=== PATIENT | female | born 1930 | race Caucasian/White ===

== ENCOUNTER → 2016-10-06 | Outpatient (CLI) | payer BC ==
[~2016-10-06] MED LIST: ALPR-411 PO; ASPI81TA28 PO; ATOR-24 PO; CALC200T PO; DOCU1TAB6 PO; DTRSR5 PO; FLUT50SP37; HYDR-5688 PO; KETO2CRE14 TD; LTHSR/300 PO; METR0.754 TD; MTRCR45; MULT-513 PO; NZRCR; POTA-335 PO; POTA1TAB97 PO; TRAZ50TA35 PO; TRML160; VTMD PO
== END | disposition home or self-care (01) ==
LOC: C.LABSPEC 07:23
PROVIDERS: ATTEND Internal Medicine
DX: R19.7 Diarrhea, unspecified (principal)

== ENCOUNTER 2016-10-08 09:28 | Inpatient (IN) | payer BC, OTHER ==
[~2016-10-08] VITALS: Ht 163.8 cm; Wt 60.8 kg
[~2016-10-08 09:28] MED LIST changes: -ASPI81TA28 PO; -ATOR-24 PO; -DOCU1TAB6 PO; -DTRSR5 PO; -FLUT50SP37; -MTRCR45; -NZRCR; -POTA1TAB97 PO; -TRML160
[2016-10-08] MEDS ORDERED: SODIUM CHLORIDE 0.9% 1000ML 1,000 ML IV SCH (09:34)
[2016-10-08 09:55] VITALS: O2SAT 99
[2016-10-08] MEDS ORDERED: SODIUM CHLORIDE 0.9% 500ML 500 ML IV STA ×2 (09:57→12:15)
--- NOTE | 2016-10-08 10:00 | DIAGNOSTIC IMAGING REPORT ---
CT OF THE HEAD WITHOUT CONTRAST CLINICAL HISTORY: Stroke symptoms. COMPARISON STUDY: Head CT and MRI the brain November 07, 2006. CT DOSE: 709.48 mGy.cm TECHNIQUE: Helical axial images of the head were obtained without IV contrast. Automated exposure control was utilized for the study. FINDINGS: No acute intracranial hemorrhage, midline shift or mass effect is present. Ventricular system is stable. There is a cavum septum pellucidum. There are no CT findings to suggest acute dural sinus thrombosis or acute territorial infarct. No significant calvarial abnormalities are present. Visualized portions of the sinuses and mastoid air cells are clear. There is possible hyperdensity within the right middle cerebral artery. IMPRESSION: 1. No acute intracranial hemorrhage or mass effect. 2. Possible hyperdensity of the right middle cerebral artery. This may reflect artifact or acute thrombus seen in the setting of acute infarct. Electronically signed by: Pepe Cordero M.D. 10/08/2016 9:59 AM Dictated Date/Time: 10/08/2016 9:51 AM
--- NOTE | 2016-10-08 10:00 | EMERGENCY ROOM VISIT NOTE ---
History Report prepared by Isela: Charbel Ferrell Under the Supervision of: Dr. Palmer Johnson M.D. First contact with patient: 09:34 Chief Complaint: STROKE SYMPTOMS Stated Complaint: STROKE SYMTOMS History of Present Illness The patient is a 86 year old female who presents to the Emergency Room with complaints of an episode of stroke occurring this morning. Per the patient's nwptjpde-[id number] and the patient, she heard a banging this morning about 1.5 hours ago, and she was found on the floor and was "pounding" on the dresser. The patient adds that she slid and fell to the floor around [id number] this morning. She had reportedly been up and walking around at 0400 this morning to tend to her dog, but the wwnckxob-iu-dha had last seen her last night before bed around 1930. She had a glass of wine last night with dinner, but this is not unusual for her. She is reported to last known to be well around 0600 this morning. The mwyezxdd-ag-lok indicates that she has noticed left-sided weakness and left-sided facial droop. The patient reports that after tending to her dog she went to go back to sleep, but felt weak in her legs. She then lowered herself to the floor. The patient does not have a history of stroke or migraine , but has a history of hypertension and osteoporosis. She has also had a knee replacement in the past. She does not have a headache, but complains of right shoulder pain. She was at the doctors yesterday to receive an injection to her right shoulder. She recently lost about 52 pounds over the past year, and has been having stool cultures to test for C. diff. Source of History: patient, family Onset: about 1.5 hours ago Position: head Quality: other (stroke) Timing: other (episode) Associated Symptoms: + weakness (left-sided), No headache Review of Systems See HPI for pertinent positives & negatives. A total of 10 systems reviewed and were otherwise negative. Past Medical & Surgical Medical Problems: (1) Bipolar 1 disorder (2) CVA (cerebral vascular accident) (3) History of hypertension (4) History of osteoporosis (5) Spinal stenosis Surgical Problems: (1) Status post left partial knee replacement (2) Status post right partial knee replacement Family History No pertinent family history stated. Social History Housing Status: lives with family Current/Historical Medications Scheduled Alprazolam (Xanax), 0.25 MG PO HS Aspirin (Aspirin Ec), 81 MG PO DAILY Atorvastatin (Lipitor), 40 MG PO HS Calcium Carbonate-Vitamin D (Oscal 500/200 D-3), 1 TABLET PO BID Docusate Sodium (Docusate Sodium), 100 MG PO DAILY Zena Carbonate (Zena Carbonate), 300 MG PO HS Multivitamins/Minerals (Mvi With Minerals), 1 TAB PO DAILY Oxybutynin Chloride (Oxybutynin Chloride ER), 5 MG PO DAILY Potassium Chloride (K-Tab), 20 MEQ PO TID Trazodone Hcl (Trazodone), 150 MG PO HS Scheduled PRN Hydrocodone/Acetaminophen 5MG/325MG ([place] 5MG/325MG), 1 TABLET PO Q6 PRN for Pain Miscellaneous Medications Fluticasone Propionate (Nasal) (Clarispray) Ketoconazole (Ketoconazole) Metronidazole Hcl (Metronidazole) Triamcinolone (Triamcinolone Acetonide) Allergies Coded Allergies: Iodine (Verified Allergy, Severe, ANAPHYLACTIC SHOCK, 10/08/16) PT STATES IODINE ALLERGY ,ANAPHYLACTIC SHOCK ON CONTRAST MEDIA FORM RADIOLOGIST INFORMED PT WAS CANCELED DR OFFICE WAS CALLED Penicillins (Verified Allergy, Intermediate, HIVES, 10/08/16) HIVES Molds and Smuts (Verified Allergy, Unknown, ., 10/08/16) POLLEN (Verified Allergy, Unknown, ., 10/08/16) Physical Exam Vital Signs Date Time Temp Pulse Resp B/P Pulse Ox O2 Delivery O2 Flow Rate FiO2 10/08/16 11:15 60 14 176/84 100 Room Air 10/08/16 11:00 65 17 171/69 97 Room Air 10/08/16 10:45 74 15 169/71 100 Room Air 10/08/16 10:30 67 19 181/83 100 Room Air 10/08/16 10:16 68 23 182/73 100 Room Air 10/08/16 10:06 82 18 195/72 98 Room Air 10/08/16 09:55 99 Room Air 10/08/16 09:51 134/90 10/08/16 09:49 73 10/08/16 09:44 36.9 65 22 172/84 100 Room Air Physical Exam GENERAL: Patient is a healthy-appearing well-nourished HEAD: Normocephalic atraumatic EYES: Ocular movements intact pupils equal and react to light OROPHARYNX mucous membranes are moist no exudates present no erythema or edema present NECK: Supple no nuchal rigidity CHEST: Good equal expansion LUNGS: Clear and equal to auscultation CARDIAC: Normal S1 and S2 ABDOMEN: Soft nontender no guarding BACK: No CVA tenderness EXTREMITIES: No pain upon palpation. 4/5 strength in left arm, 4/5 strength in left leg. No clubbing cyanosis or edema NEURO: Patient is following commands is answering questions appropriately. Alert and oriented x3. Left-sided facial droop noted. Medical Decision & Procedures ER Provider Diagnostic Interpretation: Radiology results as stated below per my review and radiologist interpretation: CT OF THE HEAD WITHOUT CONTRAST FINDINGS: No acute intracranial hemorrhage, midline shift or mass effect is present. Ventricular system is stable. There is a cavum septum pellucidum. There are no CT findings to suggest acute dural sinus thrombosis or acute territorial infarct. No significant calvarial abnormalities are present. Visualized portions of the sinuses and mastoid air cells are clear. There is possible hyperdensity within the right middle cerebral artery. IMPRESSION: 1. No acute intracranial hemorrhage or mass effect. 2. Possible hyperdensity of the right middle cerebral artery. This may reflect artifact or acute thrombus seen in the setting of acute infarct. Electronically signed by: Pepe Cordero M.D. 10/08/2016 9:59 AM Dictated Date/Time: 10/08/2016 9:51 AM CHEST ONE VIEW PORTABLE FINDINGS: Right shoulder arthroplasty is incidentally noted. There is no pneumothorax or pleural effusion. Cardiac size is normal. Mediastinal contours are normal. Linear bibasilar opacities favor atelectasis. There is no evidence of pulmonary edema. IMPRESSION: No acute cardiopulmonary findings. Electronically signed by: Pepe Cordero M.D. 10/08/2016 10:00 AM Dictated Date/Time: 10/08/2016 9:59 AM Laboratory Results 10/08/16 09:50 Red Blood Count 3.79, Mean Corpuscular Volume 93.1, Mean Corpuscular Hemoglobin 31.1, Mean Corpuscular Hemoglobin Concent 33.4, Mean Platelet Volume 9.1, Neutrophils (%) (Auto) 78.7, Lymphocytes (%) (Auto) 13.2, Monocytes (%) (Auto) 7.9, Eosinophils (%) (Auto) 0.0, Basophils (%) (Auto) 0.0, Neutrophils # (Auto) 6.63, Lymphocytes # (Auto) 1.11, Monocytes # (Auto) 0.67, Eosinophils # (Auto) 0.00, Basophils # (Auto) 0.00 10/08/16 09:50 Test 10/08/16 09:46 10/08/16 09:50 10/08/16 11:10 Bedside Glucose 93 mg/dl (70-90) White Blood Count 8.43 K/uL (4.8-10.8) Red Blood Count 3.79 M/uL (4.2-5.4) Hemoglobin 11.8 g/dL (12.0-16.0) Hematocrit 35.3 % (37-47) Mean Corpuscular Volume 93.1 fL (80-100) Mean Corpuscular Hemoglobin 31.1 pg (25-34) Mean Corpuscular Hemoglobin Concent 33.4 g/dl (32-36) Platelet Count 245 K/uL (130-400) Mean Platelet Volume 9.1 fL (7.4-10.4) Neutrophils (%) (Auto) 78.7 % Lymphocytes (%) (Auto) 13.2 % Monocytes (%) (Auto) 7.9 % Eosinophils (%) (Auto) 0.0 % Basophils (%) (Auto) 0.0 % Neutrophils # (Auto) 6.63 K/uL (1.4-6.5) Lymphocytes # (Auto) 1.11 K/uL (1.2-3.4) Monocytes # (Auto) 0.67 K/uL (0.11-0.59) Eosinophils # (Auto) 0.00 K/uL (0-0.5) Basophils # (Auto) 0.00 K/uL (0-0.2) RDW Standard Deviation 47.5 fL (36.4-46.3) RDW Coefficient of Variation 13.9 % (11.5-14.5) Immature Granulocyte % (Auto) 0.2 % Immature Granulocyte # (Auto) 0.02 K/uL (0.00-0.02) Prothrombin Time 10.0 SECONDS (9.0-12.0) Prothromb Time International Ratio 0.9 (0.9-1.1) Activated Partial Thromboplast Time 22.4 SECONDS (21.0-31.0) Partial Thromboplastin Ratio 0.9 Anion Gap 8.0 mmol/L (3-11) Est Creatinine Clear Calc Drug Dose 36.0 ml/min Estimated GFR () 62.4 Estimated GFR (Non- 53.9 BUN/Creatinine Ratio 26.6 (10-20) Calcium Level 9.6 mg/dl (8.5-10.1) Total Creatine Kinase 42 U/L (26-192) Creatine Kinase MB 0.8 ng/ml (0.5-3.6) Creatine Kinase MB Ratio 1.9 (0-3.0) Troponin I < 0.015 ng/ml (0-0.045) Zena Level 0.5 mMOL/L (0.6-1.2) Urine Color YELLOW Urine Appearance CLEAR (CLEAR) Urine pH 7.5 (4.5-7.5) Urine Specific [place] 1.004 (1.000-1.030) Urine Protein NEG (NEG) Urine Glucose (UA) NEG (NEG) Urine Ketones NEG (NEG) Urine Occult Blood NEG (NEG) Urine Nitrite NEG (NEG) Urine Bilirubin NEG (NEG) Urine Urobilinogen NEG (NEG) Urine Leukocyte Esterase NEG (NEG) Urine Opiates Screen NEG (NEG) Urine Methadone, Qualitative NEG (NEG) Urine Barbiturates NEG (NEG) Urine Phencyclidine (PCP) Level NEG (NEG) Ur Amphetamine/Methamphetamine NEG (NEG) MDMA (Ecstasy) Screen NEG (NEG) Urine Benzodiazepines Screen NEG (NEG) Urine Cocaine Metabolite NEG (NEG) Urine Marijuana (THC) NEG (NEG) Labs reviewed by ED physician. Medications Administered Medications (Trade) Dose Ordered Sig/Tomás Route Start Time Stop Time Status Last Admin Dose Admin Sodium Chloride 1,000 ml @ 50 mls/hr Q20H IV 10/08/16 09:34 11/07/16 09:33 10/08/16 10:03 50 MLS/HR Sodium Chloride (Nss 500ml) 500 ml @ 999 mls/hr Q31M STAT IV 10/08/16 09:57 10/08/16 10:27 DC 10/08/16 10:00 999 MLS/HR ECG Indication: other (stroke symptoms) Rate (beats per minute): 59 Rhythm: sinus bradycardia Findings: no acute ischemic change, no ectopy ED Course 0934: Past medical records reviewed. The patient was evaluated in room B1. A complete history and physical examination was performed. 0934: Ordered NSS 1,000 ml @ 50 mls/hr IV. 0951: I discussed the patient's case with Dr. Rasmussen, who will evaluate the patient. 0957: Ordered NSS 500 ml @ 999 mls/hr IV. 1031: Ordered Aspirin 324 mg PO. 1100: I discussed the patient's case with Dr. Pretty, he has agreed to evaluate the patient for further management and care. Medical Decision Differential diagnosis: Etiologies such as metabolic, infection, hypo/hyperglycemia, electrolyte abnormalities, cardiac sources, intracerebral event, toxicologic, neurologic, as well as others were entertained. This is an 86-year-old female who presents emergency department with left-sided leg and arm weakness along with a left-sided facial droop. Due to the nature of the patient's symptoms as well as the time limit a stroke alert was immediately initiated area the patient was discussed with a neurologist in [facility] due to the patient's waxing and waning symptoms that the patient was not a TPA candidate. The patient was given normal saline bolus 500 mL times two.I did discuss the case with the hospitalist service who agreed to admit the patient. Later on the patient's symptoms did return she was sent for CTA of the head. Due to the patient's anaphylactic reaction to CT dye in the past she was given Solu-Medrol, Benadryl along with Zantac. [facility] neurologist recommended that an NG tube be placed and the patient be loaded with Plavix. Patient and family were in agreement with the treatment plan. Consults Time Called: 09 Consulting Physician: Dr. Rasmussen. [facility] Returned Call: [phone] I discussed the patient's case with Dr. Rasmussen, who will evaluate the patient. Additional Consults: Time Called: 1040 Consulted Physician: Dr. Pretty, Internal Medicine Returned Call: 1100 Additional Comments: I discussed the patient's case with Dr. Pretty, he has agreed to evaluate the patient for further management and care. Impression Primary Impression: CVA (cerebral vascular accident) Critical Care I have personally spent greater than 90 minutes of critical care time in the direct management of this patient. This includes bedside care, interpretation of diagnostic studies, and testing, discussion with consultants, patient, and family members, and other required patient management activities. This 90 minutes is in excess of all separately billable procedures. Scribe Attestation The scribe's documentation has been prepared under my direction and personally reviewed by me in its entirety. I confirm that the note above accurately reflects all work, treatment, procedures, and medical decision making performed by me. Departure Information Dispostion Being Evaluated By Hospitalist Referrals Joe Reich M.D. (PCP) Forms HOME CARE DOCUMENTATION FORM, IMPORTANT VISIT INFORMATION Patient Instructions My [facility] Problem Qualifiers Primary Impression: CVA (cerebral vascular accident) CVA mechanism: unspecified Qualified Codes: I63.9 - Cerebral infarction, unspecified
--- NOTE | 2016-10-08 10:02 | DIAGNOSTIC IMAGING REPORT ---
CHEST ONE VIEW PORTABLE CLINICAL HISTORY: Stroke COMPARISON STUDY: Chest radiograph May 30, 2016 FINDINGS: Right shoulder arthroplasty is incidentally noted. There is no pneumothorax or pleural effusion. Cardiac size is normal. Mediastinal contours are normal. Linear bibasilar opacities favor atelectasis. There is no evidence of pulmonary edema. IMPRESSION: No acute cardiopulmonary findings. Electronically signed by: Pepe Cordero M.D. 10/08/2016 10:00 AM Dictated Date/Time: 10/08/2016 9:59 AM
[2016-10-08 10:03] LABS: COMPLETE YES; HEMATOCRIT 35.3 % (37-47); IG% 0.2 %; LYMPH % 13.2 %; LYMPH ABS # 1.11 K/uL (1.2-3.4); MEAN CELL VOLUME 93.1 fL (80-100); MEAN CORPUSCULAR HEMOGLOBIN 31.1 pg (25-34); MEAN CORPUSCULAR HGB CONC 33.4 g/dl (32-36); MEAN PLATELET VOLUME 9.1 fL (7.4-10.4); MONO % 7.9 %; NEUT % 78.7 %; PLATELET COUNT 245 K/uL (130-400); RED BLOOD COUNT 3.79 M/uL (4.2-5.4); WHITE BLOOD COUNT 8.43 K/uL (4.8-10.8)
[2016-10-08 10:12] LABS: INR 0.9 (0.9-1.1); PARTIAL THROMBOPLASTIN RATIO 0.9
[2016-10-08 10:20] LABS: BLOOD UREA NITROGEN 25 mg/dl (7-18); BUN/CREATININE RATIO 26.6 (10-20); CALCIUM 9.6 mg/dl (8.5-10.1); CARBON DIOXIDE 26 mmol/L (21-32); CHLORIDE 107 mmol/L (98-107); CREATININE 0.95 mg/dl (0.60-1.20); GLUCOSE 97 mg/dl (70-99); POTASSIUM 3.7 mmol/L (3.5-5.1); SODIUM 141 mmol/L (136-145)
[2016-10-08 10:25] LABS: CKMB/CK RATIO 1.9 (0-3.0)
[2016-10-08] MEDS ORDERED: ASPIRIN 81 MG CHEW PO STA (10:31)
[2016-10-08] MEDS ORDERED: ATOR-24 PO (10:46)
[2016-10-08] MEDS ORDERED: DOCU1TAB6 PO (10:46)
[2016-10-08] MEDS ORDERED: TRML160 (10:46)
[2016-10-08] MEDS ORDERED: MTRCR45 (10:46)
[2016-10-08] MEDS ORDERED: FLUT50SP37 (10:46)
[2016-10-08] MEDS ORDERED: POTA1TAB97 PO (10:46)
[2016-10-08] MEDS ORDERED: NZRCR (10:46)
[2016-10-08] MEDS ORDERED: DTRSR5 PO (10:46)
[2016-10-08] MEDS ORDERED: ASPI81TA28 PO (10:46)
[2016-10-08] MEDS ORDERED: ACETAMINOPHEN 325 MG TAB PO PRN (11:15)
[2016-10-08] MEDS ORDERED: PHARMACIST DISCHARGE MED REC CONSULT PRN (11:15)
[2016-10-08] MEDS ORDERED: ONDANSETRON INJ 2 MG/ML 2 ML VIAL IV PRN (11:15)
[2016-10-08] MEDS ORDERED: ALUMINUM/MAGNESIUM/SIMETH (MAALOX MAX) 30 ML UDC PO PRN (11:15)
[2016-10-08 11:20] LABS: URINE APPEARANCE CLEAR (CLEAR); URINE BILIRUBIN NEG (NEG); URINE COLOR YELLOW; URINE NITRITE NEG (NEG); URINE PH 7.5 (4.5-7.5); URINE SPECIFIC GRAVITY 1.004 (1.000-1.030); UROBILINOGEN NEG (NEG); ZZUR CULT IF INDIC CLEAN CATCH NO
[2016-10-08 11:21] LABS: MANUAL MICROSCOPIC REQUIRED? NO; REVIEW REQ? NO
[2016-10-08 11:46] LABS: BENZODIAZEPINE, URINE NEG (NEG); COCAINE,URINE NEG (NEG); PHENCYCLIDINE, URINE NEG (NEG)
[2016-10-08] MEDS ORDERED: OPTIRAY 320 IV PRN (12:15)
--- NOTE | 2016-10-08 12:15 | History and Physical ---
History & Physical Date & Time of Service: Oct 08, 2016 at 11:52 Chief Complaint: Stroke Symtoms Primary Care Physician: Joe Reich M.D. History of Present Illness Source: patient, family, clinic records, hospital records Patient is a pleasant 86 y/o female, with PMHx of HTN, bipolar disorder, OA, h/ o carotid stenosis, DVT, and hyperlipidemia, who presented to the ED because of stroke-like symptoms. Per patient's son, he heard his mother banging around in her room this AM. She was found on the floor, banging on the dresser. The patient states she slid out of bed and fell on the floor. She was lying there for approximately 15 minutes before she was found. Patient was last reported well around 0600 this AM. Patient states she was tending to her dog early this AM and noticed her legs getting weak. She states she then lowered herself to the floor. [id number] reports left-sided weakness and facial droop. Per son , when he found the patient this AM, she was confused with slurred speech. Patient denies any cardiac history. Denies any history of CVA, but states she has had a mini stroke. Admits to h/o DVT. Denies PE. Patient admits to a h/o carotid stenosis for which she follows Dr. Perez; per son, at this time, they are deferring surgery. Patient denies any fever, chills, sweats, lightheadedness , dizziness, vision changes, CP, palpitations, edema, SOB, wheezing, cough, abdominal pain, nausea, vomiting, diarrhea, urinary symptoms, melena, numbness/ tingling, muscle/joint pain, anxiety/depression, active bleeding, or new skin discoloration/changes. Past Medical/Surgical History Medical Problems: 1. HTN 2. Bipolar disorder 3. OA 4. h/o carotid stenosis 5. h/o DVT 6. Hyperlipidemia Family History Omitted secondary to age Social History Smoking Status: Never Smoker Immunizations History of Influenza Vaccine: Unknown History of Tetanus Vaccine?: Unknown History of Pneumococcal: Unknown History of Hepatitis B Vaccine: Unknown Multi-Drug Resistant Organisms History of MDRO: No Allergies Coded Allergies: Iodine (Verified Allergy, Severe, ANAPHYLACTIC SHOCK, 10/08/16) PT STATES IODINE ALLERGY ,ANAPHYLACTIC SHOCK ON CONTRAST MEDIA FORM RADIOLOGIST INFORMED PT WAS CANCELED DR LUO WAS CALLED Penicillins (Verified Allergy, Intermediate, HIVES, 10/08/16) HIVES Molds and Smuts (Verified Allergy, Unknown, ., 10/08/16) POLLEN (Verified Allergy, Unknown, ., 10/08/16) Home Medications Scheduled Alprazolam (Xanax), 0.25 MG PO HS Aspirin (Aspirin Ec), 81 MG PO DAILY Atorvastatin (Lipitor), 40 MG PO HS Calcium Carbonate-Vitamin D (Oscal 500/200 D-3), 1 TABLET PO BID Docusate Sodium (Docusate Sodium), 100 MG PO DAILY Helen Carbonate (Helen Carbonate), 300 MG PO HS Multivitamins/Minerals (Mvi With Minerals), 1 TAB PO DAILY Oxybutynin Chloride (Oxybutynin Chloride ER), 5 MG PO DAILY Potassium Chloride (K-Tab), 20 MEQ PO TID Trazodone Hcl (Trazodone), 150 MG PO HS Scheduled PRN Hydrocodone/Acetaminophen 5MG/325MG ([place]urora 5MG/325MG), 1 TABLET PO Q6 PRN for Pain Miscellaneous Medications Fluticasone Propionate (Nasal) (Clarispray) Ketoconazole (Ketoconazole) Metronidazole Hcl (Metronidazole) Triamcinolone (Triamcinolone Acetonide) Physical Exam Vital Signs Date Time Temp Pulse Resp B/P Pulse Ox O2 Delivery O2 Flow Rate FiO2 10/08/16 11:31 57 19 157/72 100 Room Air 10/08/16 11:24 61 10/08/16 11:15 60 14 176/84 100 Room Air 10/08/16 11:00 65 17 171/69 97 Room Air 10/08/16 10:45 74 15 169/71 100 Room Air 10/08/16 10:30 67 19 181/83 100 Room Air 10/08/16 10:16 68 23 182/73 100 Room Air 10/08/16 10:06 82 18 195/72 98 Room Air 10/08/16 09:55 99 Room Air 10/08/16 09:51 134/90 10/08/16 09:49 73 10/08/16 09:44 36.9 65 22 172/84 100 Room Air General Appearance: no apparent distress, + pertinent finding (frail appearing ) Head: normocephalic, atraumatic ENT: hearing grossly normal Neck: supple Respiratory/Chest: lungs clear, no respiratory distress, no accessory muscle use Cardiovascular: + bradycardia (regular rhythm ) Abdomen/GI: normal bowel sounds, non tender, soft Extremities/Musculoskelatal: no calf tenderness, no pedal edema Neurologic/Psych: alert, normal mood/affect, oriented x 3, + facial droop ( left sided ), + motor weakness (decreased left upper extremity strength ) Skin: normal color, warm/dry, no rash Diagnostics Laboratory Results Results Past 24 Hours Test 10/08/16 09:46 10/08/16 09:50 10/08/16 11:02 10/08/16 11:10 Range/Units Bedside Glucose 93 70-90 mg/dl White Blood Count 8.43 4.8-10.8 K/uL Red Blood Count 3.79 4.2-5.4 M/uL Hemoglobin 11.8 12.0-16.0 g/dL Hematocrit 35.3 37-47 % Mean Corpuscular Volume 93.1 80-100 fL Mean Corpuscular Hemoglobin 31.1 25-34 pg Mean Corpuscular Hemoglobin Concent 33.4 32-36 g/dl Platelet Count 245 130-400 K/uL Mean Platelet Volume 9.1 7.4-10.4 fL Neutrophils (%) (Auto) 78.7 % Lymphocytes (%) (Auto) 13.2 % Monocytes (%) (Auto) 7.9 % Eosinophils (%) (Auto) 0.0 % Basophils (%) (Auto) 0.0 % Neutrophils # (Auto) 6.63 1.4-6.5 K/uL Lymphocytes # (Auto) 1.11 1.2-3.4 K/uL Monocytes # (Auto) 0.67 0.11-0.59 K/uL Eosinophils # (Auto) 0.00 0-0.5 K/uL Basophils # (Auto) 0.00 0-0.2 K/uL RDW Standard Deviation 47.5 36.4-46.3 fL RDW Coefficient of Variation 13.9 11.5-14.5 % Immature Granulocyte % (Auto) 0.2 % Immature Granulocyte # (Auto) 0.02 0.00-0.02 K/uL Prothrombin Time 10.0 9.0-12.0 SECONDS Prothromb Time International Ratio 0.9 0.9-1.1 Activated Partial Thromboplast Time 22.4 21.0-31.0 SECONDS Partial Thromboplastin Ratio 0.9 Sodium Level 141 136-145 mmol/L Potassium Level 3.7 3.5-5.1 mmol/L Chloride Level 107 98-107 mmol/L Carbon Dioxide Level 26 21-32 mmol/L Anion Gap 8.0 3-11 mmol/L Blood Urea Nitrogen 25 7-18 mg/dl Creatinine 0.95 0.60-1.20 mg/dl Est Creatinine Clear Calc Drug Dose 36.0 ml/min Estimated GFR () 62.4 Estimated GFR (Non- 53.9 BUN/Creatinine Ratio 26.6 10-20 Random Glucose 97 70-99 mg/dl Calcium Level 9.6 8.5-10.1 mg/dl Total Creatine Kinase 42 26-192 U/L Creatine Kinase MB 0.8 0.5-3.6 ng/ml Creatine Kinase MB Ratio 1.9 0-3.0 Troponin I < 0.015 0-0.045 ng/ml Helen Level 0.5 0.6-1.2 mMOL/L Urine Color YELLOW Urine Appearance CLEAR CLEAR Urine pH 7.5 4.5-7.5 Urine Specific Cruger 1.004 1.000-1.030 Urine Protein NEG NEG Urine Glucose (UA) NEG NEG Urine Ketones NEG NEG Urine Occult Blood NEG NEG Urine Nitrite NEG NEG Urine Bilirubin NEG NEG Urine Urobilinogen NEG NEG Urine Leukocyte Esterase NEG NEG Urine Opiates Screen NEG NEG Urine Methadone, Qualitative NEG NEG Urine Barbiturates NEG NEG Urine Phencyclidine (PCP) Level NEG NEG Ur Amphetamine/Methamphetamine NEG NEG MDMA (Ecstasy) Screen NEG NEG Urine Benzodiazepines Screen NEG NEG Urine Cocaine Metabolite NEG NEG Urine Marijuana (THC) NEG NEG Diagnostic Radiology CT OF THE HEAD WITHOUT CONTRAST CLINICAL HISTORY: Stroke symptoms. COMPARISON STUDY: Head CT and MRI the brain November 07, 2006. CT DOSE: 709.48 mGy.cm TECHNIQUE: Helical axial images of the head were obtained without IV contrast. Automated exposure control was utilized for the study. FINDINGS: No acute intracranial hemorrhage, midline shift or mass effect is present. Ventricular system is stable. There is a cavum septum pellucidum. There are no CT findings to suggest acute dural sinus thrombosis or acute territorial infarct. No significant calvarial abnormalities are present. Visualized portions of the sinuses and mastoid air cells are clear. There is possible hyperdensity within the right middle cerebral artery. IMPRESSION: 1. No acute intracranial hemorrhage or mass effect. 2. Possible hyperdensity of the right middle cerebral artery. This may reflect artifact or acute thrombus seen in the setting of acute infarct. Electronically signed by: Pepe Cordero M.D. 10/08/2016 9:59 AM Dictated Date/Time: 10/08/2016 9:51 AM The status of this report is Signed. Draft = Not yet reviewed or approved by Radiologist. Signed = Reviewed and approved by Radiologist. CHEST ONE VIEW PORTABLE CLINICAL HISTORY: Stroke COMPARISON STUDY: Chest radiograph May 30, 2016 FINDINGS: Right shoulder arthroplasty is incidentally noted. There is no pneumothorax or pleural effusion. Cardiac size is normal. Mediastinal contours are normal. Linear bibasilar opacities favor atelectasis. There is no evidence of pulmonary edema. IMPRESSION: No acute cardiopulmonary findings. Electronically signed by: Pepe Cordero M.D. 10/08/2016 10:00 AM Dictated Date/Time: 10/08/2016 9:59 AM The status of this report is Signed. Draft = Not yet reviewed or approved by Radiologist. Signed = Reviewed and approved by Radiologist. EKG KRISTIAN CLEVELAND ID:[id number] 08-OCT-2016 09:51:07 [facility] Sinus bradycardia with sinus arrhythmia Otherwise normal ECG When compared with ECG of 24-AUG-2013 19:03, QT has shortened 25mm/s 10mm/mV 150Hz 8.0 SP2 12SL 241 AMI: 13 Referred by: Unconfirmed Vent. 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 Gear:ANUM Hastings ind: Impression Assessment and Plan 86 y/o female, with PMHx of HTN, bipolar disorder, OA, h/o carotid stenosis, DVT , TIA, and hyperlipidemia, who presented to the ED because of stroke-like symptoms: ?CVA: - Admit tele for cardiac monitoring - Stroke protocol - NPO - PT/OT - Continue ASA 325 mg PO QAM - IV NSS @ 50 ml/hr x1 bag - Check lipid panel/ha1c - ECHO - Symptoms have reappeared--> CTA of head per [place] neurology recommendations/ NG placement for Plavix - Consult neurology, appreciate recommendations - Follow CBC/PRP h/o carotid stenosis: - Following w/ Dr. Perez - CTA of neck Diarrhea: - Following w/ Dr. Diane - C.diff and stool studies negative - Scheduled for colonoscopy for Sunday Hyperlipidemia: Hold Atorvastatin 40 mg PO HS due to NPO status HTN: - Denies any recent medication - Allow for permissive HTN Bipolar disorder: Xanax 0.25 mg PO HS, Trazodone 150 mg PO HS, Helen 300 mg PO HS--> hold due to NPO status Urinary issues: Oxybutynin 5 mg PO daily--> hold due to NPO status OA: Aurora PRN--> hold due to NPO status DVT prophylaxis: YOLI and SCDs Code Status: LEVEL III, NO VENTILATION Dispo: From home, lives w/ son and [id number]. Consult delinquency prevention social worker I personally evaluated this patient and performed a physical exam. I reviewed the orders. I read this note completed by Yudy Galeana PA-C and agree with the contents in entirety. Level of Care Telemetry Resuscitation Status FULL NO [facility] VENTILATION VTE Prophylaxis VTE Risk Assessment Done? Y/N: Yes Risk Level: Moderate Given or contraindicated: T.E.D. Stockings, SCD's
[2016-10-08] MEDS ORDERED: FAMOTIDINE IV INJ 20 MG in DEXTROSE 5% 100ML 100 ML IV STA (12:30)
[2016-10-08] MEDS ORDERED: METHYLPREDNISOLONE 125 MG VIAL IV STA (12:30)
[2016-10-08] MEDS ORDERED: DiphenhydrAMINE HCL 50 MG/ML VIAL IV STA (12:30)
[2016-10-08 14:01] VITALS: BP 176/75; PULSE 65; TEMP 36.5; O2SAT 99; Ht 163.8 cm; Wt 60.8 kg
--- NOTE | 2016-10-08 14:07 | DIAGNOSTIC IMAGING REPORT ---
CT ANGIOGRAPHY OF THE NECK CT DOSE: 476.24 mGy.cm CLINICAL HISTORY: Left-sided weakness. TECHNIQUE: Axial images of the neck were obtained during arterial phase following intravenous injection of 119 cc Optiray 320 IV. Sagittal and coronal reconstructions were viewed as well as maximal intensity projections on an independent 3-D workstation. COMPARISON STUDY: Carotid ultrasound August 27, 2013. FINDINGS: There is occlusion of the cervical portion of the right internal carotid artery with reconstitution at the level the right cavernous carotid. There is thrombus within the right cavernous carotid with abrupt occlusion of the proximal right middle cerebral artery with distal reconstitution. There is extensive plaque within the proximal left internal carotid artery with 70-80% stenosis of the proximal left internal carotid artery. The right vertebral artery is dominant and patent. The left vertebral artery is diminutive and ends in PICA. There is no cervical lymphadenopathy. Mild left upper lobe ground glass opacities suggest atelectasis. IMPRESSION: 1. Occlusion of the cervical right internal carotid artery with reconstitution at the level the right cavernous carotid which likely contains thrombus. In addition, abrupt occlusion of the right middle cerebral artery with distal reconstitution which would account for an acute right MCA territory infarct. 2. 70-80% stenosis of the proximal left internal carotid artery with extensive plaque. Electronically signed by: Pepe Cordero M.D. 10/08/2016 2:06 PM Dictated Date/Time: 10/08/2016 2:01 PM
--- NOTE | 2016-10-08 14:08 | DIAGNOSTIC IMAGING REPORT ---
CTA ANGIOGRAPHY OF THE HEAD CLINICAL HISTORY: Stroke symptoms. Left-sided weakness. COMPARISON STUDY: Head CT and MRI of the brain November 07, [address] performed earlier today. TECHNIQUE: Helical axial images of the head were obtained following uneventful intravenous administration of 119 cc of Optiray 320. FINDINGS: There is occlusion of the cervical portion of the right internal carotid artery with reconstitution at the level the right cavernous carotid. There is suspected thrombus within the right cavernous carotid. Note is made of abrupt occlusion of the proximal right middle cerebral artery with distal reconstitution. The left vertebral artery is diminutive and ends in PICA. The right vertebral artery is dominant and patent. The posterior circulation is intact. There is moderate plaque within the left cavernous carotid with mild stenosis. The sensitivity for detection of acute hemorrhage is diminished on this contrast enhanced exam but no hemorrhage is identified. There is a cavum septum pellucidum. Ventricular system is unremarkable. The basilar cisterns are patent. There are no extra-axial collections. IMPRESSION: Occlusion of the cervical portion of the right internal carotid artery with reconstitution at the level the cavernous carotid. Suspected thrombus within the right cavernous carotid with abrupt occlusion of the proximal right middle cerebral artery likely due to thrombus with distal reconstitution. The findings account for acute onset of left-sided weakness due to acute right MCA territory infarct. Electronically signed by: Pepe Cordero M.D. 10/08/2016 2:07 PM Dictated Date/Time: 10/08/2016 1:52 PM
--- NOTE | 2016-10-08 15:09 | Discharge Instructions ---
Discharge Instructions Date of Service Oct 08, 2016. Admission Reason for Admission: CVA Discharge Discharge Diagnosis / Problem: CVA/Right middle cerbral artery thrombus. Discharge Goals Goal(s): Improve disease control Activity Recommendations Activity Limitations: as noted below Transfer to [facility]. . Current Hospital Diet Patient's current hospital diet: AHA Diet (Heart Healthy) Discharge Diet Recommended Diet: AHA Diet (Heart Healthy) Procedures Procedures Performed: None. Pending Studies Studies pending at discharge: no Laboratory Results Hemoglobin A1c Test 10/08/16 09:50 Range/Units Lipid Panel Test 10/05/16 12:57 Range/Units Triglycerides Level 191 H 0-150 mg/dl Cholesterol Level 165 0-200 mg/dl HDL Cholesterol 82 mg/dl Cholesterol/HDL Ratio 2.0 LDL Cholesterol, Calculated 45 mg/dl Medical Emergencies . Who to Call and When: Medical Emergencies: If at any time you feel your situation is an emergency, please call 911 immediately. . Non-Emergent Contact Non-Emergency issues call your: Neurologist . . "Provider Documentation" section prepared by Aldo Nichols. VTE Core Measure Inpt VTE Proph given/why not?: Other Anticoagulation (Heparin gtt for acute transfer. ), T.EShari Stockings, SCD's
[2016-10-08] MEDS ORDERED: HEPARIN 25,000 UNIT/500ML D5W 500 ML IV PRN (15:15)
--- NOTE | 2016-10-08 15:35 | Discharge Summary ---
Discharge Summary Date of Service Oct 08, 2016. Discharge Summary Admission Date: Oct 08, 2016 at 11:16 Discharge Date: Oct 08, 2016 Discharge Disposition: Acute care facility Principal Diagnosis: CVA L weakness, R mid cerbral artery thrombus. Problems/Secondary Diagnoses: HTN, Bipolar disorder. Immunizations: Have You Had Influenza Vaccine: Unknown History of Tetanus Vaccine?: Unknown History of Pneumococcal: Unknown History of Hepatitis B Vaccine: Unknown Procedures: NONE> Consultations: Telestroke neurology - Dr. Jered Rasmussen M.D. Speech therapy. Medication Reconciliation Continued Medications: Alprazolam (Xanax) 0.5 Mg Tab 0.25 MG PO HS Aspirin (Aspirin Ec) 81 Mg Tab 81 MG PO DAILY Atorvastatin (Lipitor) 40 Mg Tab 40 MG PO HS, TAB Calcium Carbonate-Vitamin D (Oscal 500/200 D-3) 1 Tab Tab 1 TABLET PO BID Docusate Sodium (Docusate Sodium) 100 Mg Tab 100 MG PO DAILY Fluticasone Propionate (Nasal) (Clarispray) 50 Mcg/Act Spr Hydrocodone/Acetaminophen 5MG/325MG ([place] 5MG/325MG) Tab 1 TABLET PO Q6 PRN for Pain, TAB PRN PAIN [place] Carbonate (Llano Carbonate) 300 Mg Cap 300 MG PO HS, CAP Potassium Chloride (K-Tab) 20 Meq Tab 20 MEQ PO TID Trazodone Hcl (Trazodone) 50 Mg Tab 150 MG PO HS, TAB Discontinued Medications: Ketoconazole (Ketoconazole) 45 Appln/15 Gm Cr Metronidazole Hcl (Metronidazole) 135 Appln/45 Gm Cr Multivitamins/Minerals (Mvi With Minerals) Tab 1 TAB PO DAILY, TAB Oxybutynin Chloride (Oxybutynin Chloride ER) 5 Mg Tabcr 5 MG PO DAILY Triamcinolone (Triamcinolone Acetonide) 60 Appln/60 Ml Lotn Discharge Exam See H&P for ROS and physical exam. Hospital Course Patient was stroke alert with Left facial droop and Left sided weakness. The patients symptoms had waxed and waned with transient improvements and subsequent worsening. TPA was not indicated. The patient was admitted to the PCU and underwent a CTA of the neck and brain with the following results. Patient: KRISTIAN CLEVELAND Address1: [address] [place] [address] Rec: [id number] Address2: Acct ID: [id number] [facility] Zip: [place] [address] Date: 1930 Sex: F Room/Bed: Ref Phy: Joe Reich M.D. SC: ENA Att Phy: Report #: [id number] Mi Phy: Joe Reich M.D. Test: HCAW Admit Phy: Parts Counter Specialist: NIKI Interpreting Phy: Pepe Cordero MD Diagnosis: STROKE SYMTOMS Ordering Phy: Palmer Johnson MD Service Date: 10/08/16 Admit Date: 10/08/16 MNE: [id number] CONF: DICTATED BY: Pepe Cordero MD]] CC: Palmer Johnson MD Hester, Christopher E., M.D. Endcc: [~ rep ct add3]] CTA ANGIOGRAPHY OF THE HEAD CLINICAL HISTORY: Stroke symptoms. Left-sided weakness. COMPARISON STUDY: Head CT and MRI of the brain November 07, [address] performed earlier today. TECHNIQUE: Helical axial images of the head were obtained following uneventful intravenous administration of 119 cc of Optiray 320. FINDINGS: There is occlusion of the cervical portion of the right internal carotid artery with reconstitution at the level the right cavernous carotid. There is suspected thrombus within the right cavernous carotid. Note is made of abrupt occlusion of the proximal right middle cerebral artery with distal reconstitution. The left vertebral artery is diminutive and ends in PICA. The right vertebral artery is dominant and patent. The posterior circulation is intact. There is moderate plaque within the left cavernous carotid with mild stenosis. The sensitivity for detection of acute hemorrhage is diminished on this contrast enhanced exam but no hemorrhage is identified. There is a cavum septum pellucidum. Ventricular system is unremarkable. The basilar cisterns are patent. There are no extra-axial collections. IMPRESSION: Occlusion of the cervical portion of the right internal carotid artery with reconstitution at the level the cavernous carotid. Suspected thrombus within the right cavernous carotid with abrupt occlusion of the proximal right middle cerebral artery likely due to thrombus with distal reconstitution. The findings account for acute onset of left-sided weakness due to acute right MCA territory infarct. Electronically signed by: Pepe Cordero M.D. 10/08/2016 2:07 PM Dictated Date/Time: 10/08/2016 1:52 PM The status of this report is Signed. Draft = Not yet reviewed or approved by Radiologist. Signed = Reviewed and approved by Radiologist. Patient: KRISTIAN CLEVELAND Address1: [address] [place] [address] Rec: [id number] Address2: Acct ID: [id number] [facility] Zip: [place] [address] Date: 1930 Sex: F Room/Bed: Ref Phy: Joe Reich M.D. SC: ENA Att Phy: Report #: [id number] Mi Phy: Joe Reich M.D. Test: NCKCA Admit Phy: Parts Counter Specialist: NIKI Interpreting Phy: Pepe Cordero MD Diagnosis: STROKE SYMTOMS Ordering Phy: Yudy Grant PA-C Service Date: 10/08/16 Admit Date: 10/08/16 MNE: [id number] CONF: DICTATED BY: Pepe Cordero MD]] CC: Palmer Johnson MD Hester, Christopher E., M.D. Murarik, Taylor .GREGOR Endcc: [~ rep ct add3]] CT ANGIOGRAPHY OF THE NECK CT DOSE: 476.24 mGy.cm CLINICAL HISTORY: Left-sided weakness. TECHNIQUE: Axial images of the neck were obtained during arterial phase following intravenous injection of 119 cc Optiray 320 IV. Sagittal and coronal reconstructions were viewed as well as maximal intensity projections on an independent 3-D workstation. COMPARISON STUDY: Carotid ultrasound August 27, 2013. FINDINGS: There is occlusion of the cervical portion of the right internal carotid artery with reconstitution at the level the right cavernous carotid. There is thrombus within the right cavernous carotid with abrupt occlusion of the proximal right middle cerebral artery with distal reconstitution. There is extensive plaque within the proximal left internal carotid artery with 70-80% stenosis of the proximal left internal carotid artery. The right vertebral artery is dominant and patent. The left vertebral artery is diminutive and ends in PICA. There is no cervical lymphadenopathy. Mild left upper lobe ground glass opacities suggest atelectasis. IMPRESSION: 1. Occlusion of the cervical right internal carotid artery with reconstitution at the level the right cavernous carotid which likely contains thrombus. In addition, abrupt occlusion of the right middle cerebral artery with distal reconstitution which would account for an acute right MCA territory infarct. 2. 70-80% stenosis of the proximal left internal carotid artery with extensive plaque. Electronically signed by: Pepe Cordero M.D. 10/08/2016 2:06 PM Dictated Date/Time: 10/08/2016 2:01 PM The status of this report is Signed. Draft = Not yet reviewed or approved by Radiologist. Signed = Reviewed and approved by Radiologist. I discussed these findings with the patient and family and gave options to include transfer to tertiary care center for specialized care and for therapies and interventions not available at this facility. The patient and the family are in agreement with transfer. I spoke with the Dr. Jered Rasmussen M.D. who had been following the patient during the stroke alert through telemedicine. He agreed to accept the patient in transfer to the Neuro ICU. She will be transported by air. The patient is stable at the time of discharge. At this time she has regained the ability to swallow. She takes 81mg daily and did take this today. She is currently on a heparin gtt. Total Time Spent: Greater than 30 minutes This includes examination of the patient, discharge planning, medication reconciliation, and communication with other providers. Discharge Instructions Please refer to the electronic Patient Visit Report (Discharge Instructions) for additional information. Follow-Up Pending discharge from [facility].
--- NOTE | 2016-10-08 15:39 | Progress Note ---
Progress Note Date of Service Oct 08, 2016. Progress Note I cancelled the neurology consult as the patient is being transferred out.
[2016-10-08] MEDS ORDERED: IV FLUIDS COMPLETED PRN (16:15)
[2016-10-08] MEDS ORDERED: NON-FORMULARY MEDICATION (Lithium Carbonate 300 MG) PO SCH (21:00)
[2016-10-08] MEDS ORDERED: TRAZODONE HCL 50 MG TAB PO SCH (21:00)
[2016-10-08] MEDS ORDERED: ATORVASTATIN 20 MG TAB PO SCH (21:00)
[2016-10-09 06:21] LABS: ESTIMATED AVERAGE GLUCOSE 108 mg/dl; HA1C FLAG Normal (Normal)
[2016-10-09] MEDS ORDERED: FLUTICASONE PROPIONATE NA SPR 16 GM BTL NAE SCH (09:00)
[2016-10-09] MEDS ORDERED: ASPIRIN 325 MG ECTAB PO SCH (09:00)
== END 2016-10-08 16:53 | disposition short-term general hospital (02) | DRG 65 ==
LOC: ENRESERVDT → ENRESERVTM → EDBD 09:28 → C.EDB 09:30 → C.2E 11:16
PROVIDERS: ADMIT Hospitalist; ATTEND Hospitalist
DX: I63.311 Cerebral infarction due to thrombosis of right middle cerebral artery (principal); G81.94 Hemiplegia, unspecified affecting left nondominant side; R29.810 Facial weakness; I10 Essential (primary) hypertension; F31.9 Bipolar disorder, unspecified; R19.7 Diarrhea, unspecified; E78.5 Hyperlipidemia, unspecified; M19.90 Unspecified osteoarthritis, unspecified site; M81.0 Age-related osteoporosis without current pathological fracture; N39.9 Disorder of urinary system, unspecified; M48.00 Spinal stenosis, site unspecified; Z79.82 Long term (current) use of aspirin; Z86.73 Personal history of transient ischemic attack (TIA), and cerebral infarction without residual deficits; Z79.899 Other long term (current) drug therapy; Z86.718 Personal history of other venous thrombosis and embolism; Z86.79 Personal history of other diseases of the circulatory system; Z79.891 Long term (current) use of opiate analgesic; Z96.653 Presence of artificial knee joint, bilateral

== ENCOUNTER → 2016-11-15 | Outpatient (CLI) | payer BC ==
[~2016-11-15] MED LIST changes: +ASPI81TA28 PO; +ATOR-24 PO; +DOCU1TAB6 PO; +DTRSR5 PO; +FLUT50SP37; -KETO2CRE14 TD; -METR0.754 TD; +MTRCR45; +NZRCR; -POTA-335 PO; +POTA1TAB97 PO; +TRML160; -VTMD PO
[2016-11-15 12:20] LABS: BASO % 0.4 %; BASO ABS # 0.02 K/uL (0-0.2); COMPLETE YES; EOS % 3.9 %; HEMATOCRIT 29.9 % (37-47); IG% 0.2 %; LYMPH % 22.3 %; LYMPH ABS # 1.26 K/uL (1.2-3.4); MEAN CORPUSCULAR HEMOGLOBIN 31.8 pg (25-34); MEAN CORPUSCULAR HGB CONC 31.8 g/dl (32-36); MEAN PLATELET VOLUME 9.6 fL (7.4-10.4); MONO % 7.4 %; NEUT % 65.8 %; PLATELET COUNT 274 K/uL (130-400); RED BLOOD COUNT 2.99 M/uL (4.2-5.4); WHITE BLOOD COUNT 5.64 K/uL (4.8-10.8)
[2016-11-15 13:16] LABS: ALT/SGPT 31 U/L (12-78); AST/SGOT 19 U/L (15-37); BLOOD UREA NITROGEN 30 mg/dl (7-18); BUN/CREATININE RATIO 37.9 (10-20); CALCIUM 9.7 mg/dl (8.5-10.1); CARBON DIOXIDE 28 mmol/L (21-32); CHLORIDE 103 mmol/L (98-107); CREATININE 0.79 mg/dl (0.60-1.20); GLUCOSE 96 mg/dl (70-99); POTASSIUM 3.7 mmol/L (3.5-5.1); SODIUM 138 mmol/L (136-145)
[2016-11-15 13:26] LABS: ALKALINE PHOSPHATASE 127 U/L (45-117)
== END | disposition home or self-care (01) ==
LOC: C.LABBFT 10:24
PROVIDERS: ATTEND Internal Medicine
DX: I63.9 Cerebral infarction, unspecified (principal); E55.9 Vitamin D deficiency, unspecified

== ENCOUNTER → 2016-11-18 | Outpatient (CLI) | payer BC ==
[2016-11-18 10:42] LABS: URINE APPEARANCE CLEAR (CLEAR); URINE BILIRUBIN NEG (NEG); URINE COLOR YELLOW; URINE NITRITE NEG (NEG); URINE PH 7.5 (4.5-7.5); URINE SPECIFIC GRAVITY 1.016 (1.000-1.030); UROBILINOGEN NEG (NEG); ZZUR CULT IF INDIC CLEAN CATCH YES
[2016-11-18 10:44] LABS: MANUAL MICROSCOPIC REQUIRED? NO; REVIEW REQ? YES
== END ==
LOC: C.LABSPEC 07:54
PROVIDERS: ATTEND Internal Medicine
DX: R30.0 Dysuria (principal)

== ENCOUNTER → 2016-11-30 | Outpatient (CLI) | payer BC | END | disposition home or self-care (01) | LOC: C.LABBFT 07:33 | PROVIDERS: ATTEND Nurse Practitioner | DX: F30.9 Manic episode, unspecified (principal) ==

== ENCOUNTER → 2017-01-31 | Outpatient (CLI) | payer BC ==
[2017-01-31 15:42] LABS: URINE APPEARANCE CLEAR (CLEAR); URINE BILIRUBIN NEG (NEG); URINE COLOR DK YELLOW; URINE EPITHELIAL CELL AUTO >30 /lpf (0-5); URINE NITRITE NEG (NEG); URINE SPECIFIC GRAVITY 1.023 (1.000-1.030); UROBILINOGEN NEG (NEG)
[2017-01-31 15:47] LABS: MANUAL MICROSCOPIC REQUIRED? NO; REVIEW REQ? NO
== END | disposition home or self-care (01) ==
LOC: C.LABSPEC 15:12
PROVIDERS: ATTEND Internal Medicine
DX: R41.0 Disorientation, unspecified (principal)

== ENCOUNTER → 2017-02-09 | Outpatient (CLI) | payer BC ==
[2017-02-09 12:25] LABS: URINE APPEARANCE TURBID (CLEAR); URINE BILIRUBIN NEG (NEG); URINE COLOR YELLOW; URINE EPITHELIAL CELL AUTO >30 /lpf (0-5); URINE NITRITE NEG (NEG); URINE PH 8.5 (4.5-7.5); URINE SPECIFIC GRAVITY 1.015 (1.000-1.030); UROBILINOGEN NEG (NEG); ZZUR CULT IF INDIC CLEAN CATCH YES
[2017-02-09 12:35] LABS: BASO % 0.3 %; BASO ABS # 0.02 K/uL (0-0.2); COMPLETE YES; EOS % 2.8 %; HEMATOCRIT 34.6 % (37-47); IG% 0.2 %; LYMPH % 20.3 %; LYMPH ABS # 1.29 K/uL (1.2-3.4); MEAN CELL VOLUME 102.1 fL (80-100); MEAN CORPUSCULAR HEMOGLOBIN 31.9 pg (25-34); MEAN CORPUSCULAR HGB CONC 31.2 g/dl (32-36); MEAN PLATELET VOLUME 8.9 fL (7.4-10.4); MONO % 7.7 %; NEUT % 68.7 %; PLATELET COUNT 334 K/uL (130-400); RED BLOOD COUNT 3.39 M/uL (4.2-5.4); WHITE BLOOD COUNT 6.37 K/uL (4.8-10.8)
[2017-02-09 12:48] LABS: ALT/SGPT 68 U/L (12-78); AST/SGOT 49 U/L (15-37); BLOOD UREA NITROGEN 14 mg/dl (7-18); CALCIUM 9.5 mg/dl (8.5-10.1); CARBON DIOXIDE 29 mmol/L (21-32); CHLORIDE 104 mmol/L (98-107); CREATININE 0.76 mg/dl (0.60-1.20); GLUCOSE 93 mg/dl (70-99); SODIUM 138 mmol/L (136-145)
[2017-02-09 12:58] LABS: ALB/GLOB RATIO 0.9 (0.9-2); ALKALINE PHOSPHATASE 281 U/L (45-117)
[2017-02-09 13:41] LABS: MANUAL MICROSCOPIC REQUIRED? NO; REVIEW REQ? NO; SULFASALICYLIC ACID NEG (NEG)
== END | disposition home or self-care (01) ==
LOC: C.LABBFT 08:36
PROVIDERS: ATTEND Student in an Organized Health Care Education/Training Program
DX: R32 Unspecified urinary incontinence (principal); Z51.81 Encounter for therapeutic drug level monitoring; Z79.899 Other long term (current) drug therapy

== ENCOUNTER → 2017-02-27 | Outpatient (CLI) | payer BC ==
--- NOTE | 2017-02-27 11:22 | DIAGNOSTIC IMAGING REPORT ---
DOUBLE CONTRAST BARIUM ESOPHAGRAM CLINICAL HISTORY: Recent stroke. Difficulty swallowing. COMPARISON STUDY: CT scan of the neck dated 10/08/2016.. TECHNIQUE: A standard air contrast barium esophagram is performed. Multiple spot images of the esophagus are acquired prone. The patient could not be positioned upright. FINDINGS: The patient swallowed barium without difficulty. Barium pill swallow was not attempted. The mucosal pattern is normal. Moderate esophageal dysmotility is identified. There is no evidence of intrinsic or extrinsic mass lesion. No aspiration was seen. The gastroesophageal junction distended normally. Gastroesophageal reflux was observed. Fluoroscopy time: 1.4 minutes. Fluoroscopic images: 10 IMPRESSION: 1. Esophageal dysmotility. 2. Gastroesophageal reflux was observed. 3. Only a supine examination was performed. The patient could not be positioned upright and the barium pill was not attempted. Electronically signed by: Donta Trent M.D. 02/27/2017 11:21 AM Dictated Date/Time: 02/27/2017 11:19 AM
== END | disposition home or self-care (01) ==
LOC: C.RAD 10:04
PROVIDERS: ATTEND Internal Medicine
DX: R13.10 Dysphagia, unspecified (principal); K22.4 Dyskinesia of esophagus; K21.9 Gastro-esophageal reflux disease without esophagitis

== ENCOUNTER → 2017-04-03 | Outpatient (CLI) | payer BC ==
[2017-04-03 17:43] LABS: BASO % 0.2 %; BASO ABS # 0.01 K/uL (0-0.2); COMPLETE YES; EOS % 1.8 %; HEMATOCRIT 34.8 % (37-47); IG% 0.2 %; LYMPH % 31.5 %; LYMPH ABS # 1.43 K/uL (1.2-3.4); MEAN CELL VOLUME 99.4 fL (80-100); MEAN CORPUSCULAR HGB CONC 32.2 g/dl (32-36); MEAN PLATELET VOLUME 9.2 fL (7.4-10.4); MONO % 7.5 %; NEUT % 58.8 %; PLATELET COUNT 271 K/uL (130-400); WHITE BLOOD COUNT 4.54 K/uL (4.8-10.8)
[2017-04-03 18:11] LABS: ALT/SGPT 84 U/L (12-78); BLOOD UREA NITROGEN 17 mg/dl (7-18); BUN/CREATININE RATIO 22.3 (10-20); CALCIUM 9.8 mg/dl (8.5-10.1); CARBON DIOXIDE 30 mmol/L (21-32); CHLORIDE 100 mmol/L (98-107); CREATININE 0.78 mg/dl (0.60-1.20); GLUCOSE 90 mg/dl (70-99); POTASSIUM 3.8 mmol/L (3.5-5.1); SODIUM 135 mmol/L (136-145)
[2017-04-03 18:18] LABS: ALKALINE PHOSPHATASE 358 U/L (45-117); AST/SGOT 71 U/L (15-37); FERRITIN 156.3 ng/ml (8.0-388.0); TOTAL IRON BINDING CAPACITY 262 mcg/dl (250-450)
--- NOTE | 2017-04-16 09:57 | CODING QUERY MEDICAL NECESSITY ---
CQSUPPORTING DIAGNOSIS NEEDED A supporting diagnosis is required for the test/procedure performed on this patient in order for us to be reimbursed by the patient's insurance. Please provide a supporting diagnosis for the following test/procedure listed below next to the test name along with your signature. *If there is no additional diagnosis for this patient that would support the following test/procedure please document that below next to the test/procedure. Test(s)/Procedure(s) that require a supporting diagnosis: DOS 04/03/17 FOLIC ACID TEST VITAMIN B12 TEST Provider Signature: Date: Thank you Loretta Massey [facility] Information Management Once completed, please kindly fax back to [phone] For questions please call [phone]
== END | disposition home or self-care (01) ==
LOC: C.LABBFT 14:45
PROVIDERS: ATTEND Internal Medicine
DX: D64.9 Anemia, unspecified (principal); R79.9 Abnormal finding of blood chemistry, unspecified; E55.9 Vitamin D deficiency, unspecified